=== PATIENT | female | born 1965 | race Caucasian/White ===

== ENCOUNTER 2021-07-14 16:32 | Emergency (ER) | payer OTHER ==
[2021-07-14 17:19] LABS: BASOPHIL 0.2 % (0-2); EOSINOPHIL 0.3 % (0-5); HCT 39.8 % (37.0-47.0); HGB 13.1 g/dl (12.5-16.0); MCH 29.1 pg (25.0-31.0); MCHC 32.9 g/dL (32.0-36.0); MCV 88.4 fL (78.0-100.0); MONOCYTE 8.4 % (0-12); MPV 10.5 fL (6.0-9.5); NEUTROPHIL 83.6 % (41-80); NRBC 0; PLT 259 K/uL (150-400); RDW 12.6 % (11.5-14.0); WBC 12.6 K/uL (4.0-10.5)
[2021-07-14 17:23] LABS: INR 1.04 (0.9-1.2)
[2021-07-14 17:24] LABS: PTT 25.6 SECONDS (24.4-34.7)
[2021-07-14 17:25] LABS: D-DIMER 1.37 ug/mLFEU (0.00-0.41)
[2021-07-14 17:40] LABS: BILIRUBIN - TOTAL 0.6 mg/dL (0.2-1.0); BUN/CREAT RATIO (CALC) 15.7 RATIO; CREATININE 0.83 mg/dL (0.51-0.95); GLOBULIN (CALCULATION) 3.3 g/dL; POTASSIUM 3.8 mmol/L (3.5-5.1); TOTAL PROTEIN 7.3 g/dL (6.4-8.2)
[2021-07-14 18:26] LABS: BILIRUBIN NEGATIVE (NEGATIVE); BLOOD NEGATIVE Ery/uL (NEGATIVE); CLARITY CLEAR (CLEAR); COLOR YELLOW (YELLOW); GLUCOSE (U) NORMAL (NORMAL); LEUKOCYTES NEGATIVE Leu/uL (NEGATIVE); NITRITE NEGATIVE (NEGATIVE); PROTEIN NEGATIVE (NEGATIVE); SPECIFIC GRAVITY >=1.030 (1.001-1.030); UROBILINOGEN 0.2 mg/dL (0.2-1.0); pH 5.5 (5.0-9.0)
== END 2021-07-14 19:50 | disposition other institution (70) ==
LOC: FER 16:32
PROVIDERS: Emergency Medicine
DX: R07.9 Chest pain, unspecified (principal); R20.0 Anesthesia of skin; R53.1 Weakness; R79.89 Other specified abnormal findings of blood chemistry; I25.10 Atherosclerotic heart disease of native coronary artery without angina pectoris; I10 Essential (primary) hypertension; I25.2 Old myocardial infarction; J44.9 Chronic obstructive pulmonary disease, unspecified; F17.200 Nicotine dependence, unspecified, uncomplicated; Z20.822 Contact with and (suspected) exposure to COVID-19; Z95.5 Presence of coronary angioplasty implant and graft; Z79.82 Long term (current) use of aspirin; Z88.2 Allergy status to sulfonamides
CPT/HCPCS: 36415; 70450; 71045; 80053; 81003; 83605; 84145; 84484; 85025; 85379; 85610; 85730; 93005; J2405; J7030; U0002